=== PATIENT | female | born 1970 | race Caucasian/White ===

== ENCOUNTER → 2021-09-18 | Day surgery (SDC) | payer MEDICARE, OTHER ==
[~2021-09-18] VITALS: Ht 157.5 cm; Wt 77.1 kg
[~2021-09-18] MED LIST: ADVAIR 250-501 EACH INH; ASCORBIC ACID500 MG PO; ATARAX25 MG PO; AZITHROMYCIN250 MG PO; B COMPLEX1 EACH PO; BISOPROLOL FUMAR5 MG PO; BREO ELLIPTA 11 EACH INH; BUSPIRONE HCL15 MG PO; CEFDINIR300 MG PO; CEFTIN250 MG PO; CETIRIZINE HCL10 MG PO; CIPRO500 MG PO; COLESTID 1GM TAB1 GM PO; CYMBALTA 30MG C30 MG PO; CYMBALTA60 MG PO; DALIRESP500 MCG PO; DICLOFENAC SODI75 MG PO; DUONEB 2.5-0.5M1 AMP NEB; FARXIGA5 MG PO; FEOSOL325 MG PO; HYDROCODON-ACE1 EAC2 PO; KLONOPIN1 MG PO; LACTINEX1 EACH PO; LAXATIVE SUPPOS10 MG PR; LITHIUM CARBON300 M1 PO; LOVAZA1 GM PO; LYRICA 50MG CAP50 MG PO; METFORMIN HCL1000 MG PO; METFORMIN HCL500 MG PO; NEURONTIN100 MG PO; NORCO 5-325 TA1 EACH PO; NORCO 7.5-3251 EACH PO; PAXIL20 MG PO; PHENERGAN25 M1 PO; PREDNISONE 20MG20 MG PO; PREMARIN0.3 MG PO; PRILOSEC20 MG PO; PRINIVIL10 MG PO; REQUIP1 MG PO; SEROQUEL XR400 MG PO; SINEQUAN25 MG PO; SPIRIVA RESPIMAT4 G1 INH; SYMBICORT 16010.2 GM PO; SYNTHROID50 MCG PO; TOPAMAX50 MG PO; TYLENOL500 MG PO; VARENICLINE TART1 MG PO; VENTOLIN (2.5 MG/3 M INH; VENTOLIN HFA IN18 GM INH; VITAMIN D2000 UNI1 PO; VITAMIN D2000 UNIT PO; VITAMIN D325 MC4 PO
[2021-09-18 07:51] LABS: HCT 39.6 % (37.0-47.0); HGB 12.5 g/dl (12.5-16.0); MCH 30.2 pg (25.0-31.0); MCHC 31.6 g/dL (32.0-36.0); MCV 95.7 fL (78.0-100.0); MPV 9.6 fL (6.0-9.5); RBC 4.14 M/uL (4.20-5.40); RDW 13.2 % (11.5-14.0)
[2021-09-18 08:07] LABS: ALBUMIN 3.7 g/dL (3.4-5.0); BILIRUBIN - TOTAL 0.1 mg/dL (0.2-1.0); BUN/CREAT RATIO (CALC) 10.5 RATIO; CREATININE 0.76 mg/dL (0.51-0.95); GLOBULIN (CALCULATION) 4.2 g/dL; POTASSIUM 3.8 mmol/L (3.5-5.1); TOTAL PROTEIN 7.9 g/dL (6.4-8.2)
== END | disposition home or self-care (01) ==
LOC: FAS 07:01
PROVIDERS: Surgery
DX: K43.0 Incisional hernia with obstruction, without gangrene (principal); E78.5 Hyperlipidemia, unspecified; I10 Essential (primary) hypertension; J44.9 Chronic obstructive pulmonary disease, unspecified; E11.9 Type 2 diabetes mellitus without complications; F31.9 Bipolar disorder, unspecified; Z90.49 Acquired absence of other specified parts of digestive tract; F17.210 Nicotine dependence, cigarettes, uncomplicated; Z88.1 Allergy status to other antibiotic agents; Z79.84 Long term (current) use of oral hypoglycemic drugs; R94.31 Abnormal electrocardiogram [ECG] [EKG]; Z79.4 Long term (current) use of insulin
CPT/HCPCS: 36415; 80053; 93005; J1170; J2250; J2405; J2704; J3010; J7120